=== PATIENT | male | born 1995 | race Caucasian/White ===

== ENCOUNTER 2024-02-17 06:20 | Day surgery (SDC) | payer SELFPAY ==
[2024-02-15 13:12] VITALS: BMI 26.4
[2024-02-17] MEDS ORDERED: BUPIVACAINE HCL/EPINEPHRINE/PF 30 ML VIAL IJ ONE (07:53)
[2024-02-17] MEDS ORDERED: BUPIVACAINE HCL/PF 0.25% (2.5MG/ML) 10 ML VIAL ONE (07:53)
[2024-02-17] MEDS ORDERED: EPINEPHrine/PF 1 MG/1 ML (1:1,000) AMPULE ONE (07:53)
[2024-02-17] MEDS ORDERED: BACITRACIN ZINC 15 GM TUBE TOPICAL OINTMENT ONE (07:54)
[2024-02-17] MEDS ORDERED: LIDOCAINE HCL 1%, 10 MG/ML (20ML VIAL) ONE (07:54)
[2024-02-17] MEDS ORDERED: BUPIVACAINE HCL/PF 2.5 MG/ML - 30 ML VIAL IJ ONE (07:54)
[2024-02-17] MEDS ORDERED: SEVOFLURANE 250 ML BTL ONE (08:32)
[2024-02-17] MEDS ORDERED: ONDANSETRON 4 MG/2 ML VIAL ONE ×3 (08:44→17:07)
[2024-02-17] MEDS ORDERED: LIDOCAINE HCL/PF 2% SDV 5ML VIAL ONE (08:44)
[2024-02-17] MEDS ORDERED: DEXAMETHASONE SOD PHOSPHATE 4 MG/1 ML VIAL ONE (08:44)
[2024-02-17] MEDS ORDERED: PROPOFOL 20 ML ONE ×3 (08:44→15:46)
[2024-02-17] MEDS ORDERED: ceFAZolin SODIUM 1 GM VIAL ONE ×2 (08:44→19:24)
[2024-02-17] MEDS ORDERED: MIDAZOLAM HCL 2 MG/2 ML SINGLE DOSE VIAL ONE (08:45)
[2024-02-17] MEDS ORDERED: ROCURONIUM BROMIDE 50 MG/5 ML SYRINGE ONE (08:45)
[2024-02-17] MEDS ORDERED: GLYCOPYRROLATE 0.2 MG/1 ML VIAL ONE ×2 (11:43)
[2024-02-17] MEDS ORDERED: ePHEDrine SULFATE 50 MG/1 ML AMPULE ONE (11:44)
[2024-02-17] MEDS ORDERED: HYDROmorphone HCL/PF 1 MG/ML VIAL ONE (15:22)
[2024-02-17] MEDS: BUPIVACAINE HCL/PF 0.25% (2.5MG/ML) 10 ML VIAL IJ ONE ×2 (15:44)
[2024-02-17] MEDS ORDERED: ACETAMINOPHEN INJECTION 100 ML ONE (16:43)
[2024-02-17] MEDS: ACETAMINOPHEN 1000 MG/100 ML BAG IVPB ONE (16:45)
[2024-02-17] MEDS ORDERED: FENTANYL CITRATE/PF 50 MCG/ML VIAL ONE (17:12)
[2024-02-17] MEDS: ONDANSETRON 4 MG/2 ML VIAL IVPUSH PRN (17:13)
[2024-02-17] MEDS ORDERED: ACETAMINOPHEN 325 MG TABLET (FP) PO PRN (17:46)
[2024-02-17] MEDS ORDERED: ONDANSETRON 4 MG/2 ML VIAL IVPUSH PRN (17:46)
[2024-02-17] MEDS ORDERED: ONDANSETRON *ODT* 4 MG TABLET SL PRN (17:49)
[2024-02-17] MEDS ORDERED: oxyCODONE HCL 5 MG TABLET PO PRN (17:50)
[2024-02-17] MEDS ORDERED: HYDROmorphone HCl 2 MG/ML VIAL IVPB PRN (17:51)
[2024-02-17] MEDS ORDERED: LACTATED RINGERS SOLUTION 1,000 ML IV SCH (18:00)
[2024-02-17] MEDS: CEFAZOLIN 1 GM in DEXTROSE 5%-WATER - 50 ML IVPB SCH (19:49)
[2024-02-17] MEDS: DOXYCYCLINE HYCLATE 100 MG CAPSULE PO SCH (19:49)
[2024-02-17] MEDS: oxyCODONE HCL 5 MG TABLET PO PRN (20:58)
[2024-02-17 22:34] VITALS: RESP 18
[2024-02-18] MEDS: CEFAZOLIN 1 GM in DEXTROSE 5%-WATER - 50 ML IVPB SCH ×2 (00:26→08:01)
[2024-02-18] MEDS: ENOXAPARIN NA (PORCINE) 40 MG/0.4 ML DISP.SYRIN SQ ONE (00:28)
[2024-02-18] MEDS: LACTATED RINGERS SOLUTION 1,000 ML IV SCH (08:00)
[2024-02-18 09:45] VITALS: BP 106/60; PULSE 79; TEMP 98.5
[2024-02-18] MEDS: DOCUSATE SODIUM 100 MG CAPSULE (FP) PO PRN (10:00)
== END 2024-02-18 14:07 | disposition home or self-care (01) ==
LOC: FASUSAT 06:20 → FM/S 17:49 → FASUSAT 02-18 14:07
PROVIDERS: ATTEND Surgery
CPT/HCPCS: 88305-TC; 94760; J0131